=== PATIENT | female | born 1990 | race Caucasian/White ===

== ENCOUNTER 2020-11-01 07:00 | Inpatient (IN) | payer BC, OTHER ==
[2020-11-01] MEDS ORDERED: BUTORPHANOL TARTRATE 1 MG/ML VIAL IVPB ONE (07:45)
[2020-11-01] MEDS ORDERED: PROMETHAZINE HCL 25 MG/1 ML VIAL IVPB ONE (07:45)
[2020-11-01 08:51] VITALS: BMI 40.3
[2020-11-01 08:54] LABS: INR 0.96 (0.83-1.09); PROTHROMBIN TIME (PATIENT) 11.6 SEC (9.7-13.0)
[2020-11-01 08:55] LABS: BASO % 0.5 % (0-2.0); EOS % 0.5 % (0-4.5); HEMATOCRIT 29.6 % (32.4-45.2); HEMOGLOBIN 9.9 GM/dL (10.7-15.3); LYMPH % 16.4 % (8-40); MCH 26.1 pg (25.7-33.7); MCHC 33.5 g/dl (32.0-36.0); MEAN CELL VOLUME 77.9 fl (80-96); MEAN PLT VOLUME 10.2 fl (7.5-11.1); MONO % 7.5 % (3.8-10.2); NEUT % 75.1 % (42.8-82.8); PLATELET COUNT 252 K/MM3 (134-434); RDW 15.7 % (11.6-15.6); WHITE BLOOD COUNT 8.5 K/mm3 (4.0-10.0)
[2020-11-01 08:56] LABS: ACTIVATED PTT 25.2 SECONDS (25.2-36.5)
[2020-11-01] MEDS: DEXTROSE 5%-LACTATED RINGERS 1,000 ML IV SCH (09:00)
[2020-11-01 09:05] LABS: CALCIUM 8.7 mg/dL (8.5-10.1)
[2020-11-01 09:06] LABS: BLOOD UREA NITROGEN 10.1 mg/dL (7-18)
[2020-11-01 09:09] LABS: CREATININE 0.6 mg/dL (0.55-1.3)
[2020-11-01] MEDS: OXYTOCIN 30 UNITS in 0.9% NS 30 UNIT/500 ML INFUS.BAG IVPB SCH (09:10)
[2020-11-01] MEDS ORDERED: BUPIVACAINE HCL/PF 0.25% (2.5MG/ML) 10 ML VIAL ONE ×2 (13:43→21:08)
[2020-11-01] MEDS ORDERED: FENTANYL/BUPIVACAINE/NS/PF - PCEA - 50 ML DISP.SYRIN EP ONE ×3 (13:54→21:12)
[2020-11-01] MEDS: FENTANYL/BUPIVACAINE/NS/PF - PCEA - 50 ML DISP.SYRIN EP SCH (14:15)
[2020-11-01] MEDS ORDERED: NALOXONE HCL 0.4 MG/ML VIAL IVPUSH PRN (14:22)
[2020-11-01] MEDS ORDERED: PCA PUMP NR ONE (21:12)
[2020-11-01] MEDS ORDERED: LIDOCAINE HCL 1% PRESERVATIVE FREE - 30ML VIAL ONE (21:56)
[2020-11-01] MEDS ORDERED: OXYTOCIN 20 UNITS in 0.9% NS 20 UNIT/1,000 ML INFUS.BAG IV ONE (21:56)
[2020-11-01] MEDS ORDERED: METHYLERGONOVINE MALEATE 0.2 MG/1 ML AMP IM PRN (23:28)
[2020-11-01] MEDS ORDERED: WITCH HAZEL 50% (TUCKS) 40 PAD/JAR PAD TP PRN (23:28)
[2020-11-01] MEDS ORDERED: oxyCODONE HCL 5 MG TABLET PO PRN (23:28)
[2020-11-01] MEDS ORDERED: BENZOCAINE 28 GM HEMORRHOIDAL OINTMENT TP PRN (23:28)
[2020-11-01] MEDS ORDERED: BISACODYL 10 MG SUPP.RECT RC PRN (23:28)
[2020-11-01] MEDS ORDERED: BENZOCAINE 20% 57 GM BOTTLE TP PRN (23:28)
[2020-11-02] MEDS ORDERED: IBUPROFEN 600 MG TABLET (FP) PO ONE (00:21)
[2020-11-02] MEDS ORDERED: PCA PUMP NR ONE (00:22)
[2020-11-02] MEDS ORDERED: ACETAMINOPHEN 325 MG TABLET (FP) ONE (00:22)
[2020-11-02] MEDS: IBUPROFEN 600 MG TABLET (FP) PO PRN ×4 (00:25→23:55)
[2020-11-02] MEDS: ACETAMINOPHEN 325 MG TABLET (FP) PO PRN ×4 (00:25→23:55)
[2020-11-02] MEDS: OXYTOCIN 20 UNITS in 0.9% NS 20 UNIT/1,000 ML INFUS.BAG IV SCH ×2 (02:55→23:56)
[2020-11-02 08:26] LABS: BASO % 0.3 % (0-2.0); EOS % 0.1 % (0-4.5); HEMOGLOBIN 9.2 GM/dL (10.7-15.3); MCH 26.2 pg (25.7-33.7); MCHC 32.9 g/dl (32.0-36.0); MEAN CELL VOLUME 79.8 fl (80-96); MEAN PLT VOLUME 10.3 fl (7.5-11.1); NEUT % 83.6 % (42.8-82.8); PLATELET COUNT 213 K/MM3 (134-434); RBC 3.51 M/mm3 (3.60-5.2); RDW 15.9 % (11.6-15.6); WHITE BLOOD COUNT 14.3 K/mm3 (4.0-10.0)
[2020-11-02] MEDS: PRENATAL VITAMINS W/ FOLIC ACID TABLET (FP) PO SCH (09:16)
[2020-11-02] MEDS ORDERED: DIPHTH,PERTUSS(ACELL),TET 0.5 ML DISP.SYRIN IM ONE (20:38)
[2020-11-02] MEDS: DEXTROSE 5%-LACTATED RINGERS 1,000 ML IV SCH (21:38)
[2020-11-02] MEDS: OXYTOCIN 30 UNITS in 0.9% NS 30 UNIT/500 ML INFUS.BAG IVPB SCH (21:38)
[2020-11-02] MEDS: FENTANYL/BUPIVACAINE/NS/PF - PCEA - 50 ML DISP.SYRIN EP SCH (21:38)
[2020-11-02] MEDS ORDERED: SENNOSIDES/DOCUSATE COMBO (SENNA PLUS) TABLET (UD) PO PRN (22:00)
[2020-11-03] MEDS: PRENATAL VITAMINS W/ FOLIC ACID TABLET (FP) PO SCH (09:43)
[2020-11-03] MEDS: ACETAMINOPHEN 325 MG TABLET (FP) PO PRN (11:26)
[2020-11-03] MEDS: IBUPROFEN 600 MG TABLET (FP) PO PRN (11:27)
[2020-11-03 11:53] VITALS: BP 108/70; PULSE 90; TEMP 98
== END 2020-11-03 14:30 | disposition home or self-care (01) | DRG 807 ==
LOC: JLDR 07:00 → J3W 11-02 01:36
PROVIDERS: ADMIT Obstetrics & Gynecology; ATTEND Obstetrics & Gynecology
PROC: 10E0XZZ Delivery of Products of Conception, External Approach (ICD-10-PCS; principal; 2020-11-01)
PROC: 3E033VJ Introduction of Other Hormone into Peripheral Vein, Percutaneous Approach (ICD-10-PCS; 2020-11-01)
PROC: 0W8NXZZ Division of Female Perineum, External Approach (ICD-10-PCS; 2020-11-01)
DX: O41.03X0 Oligohydramnios, third trimester, not applicable or unspecified (principal); Z37.0 Single live birth; Z3A.39 39 weeks gestation of pregnancy
CPT/HCPCS: 36415; 59409; 80048; 85025; 85610; 85730; 86780; 86850; 86900; 86901; 90715

== ENCOUNTER 2023-08-10 10:01 | Inpatient (IN) | payer BC, OTHER ==
[2023-08-10] MEDS: ELECTROLYTE-148 SOLN 1,000 ML IV SCH (20:15)
[2023-08-10 21:32] LABS: BASO % 0.2 % (0-2.0); EOS % 0.2 % (0-4.5); HEMATOCRIT 28.8 % (32.4-45.2); HEMOGLOBIN 9.6 GM/dL (10.7-15.3); LYMPH % 15.2 % (8-40); MCH 26.2 pg (25.7-33.7); MCHC 33.3 g/dl (32.0-36.0); MEAN CELL VOLUME 78.7 fl (80-96); MEAN PLT VOLUME 9.5 fl (7.5-11.1); MONO % 6.6 % (3.8-10.2); NEUT % 77.8 % (42.8-82.8); PLATELET COUNT 246 10^3/uL (134-434); RBC 3.66 M/mm3 (3.60-5.2); RDW 15.6 % (11.6-15.6)
[2023-08-10 21:39] LABS: INR 0.97 (0.83-1.09); POTASSIUM 3.8 mmol/L (3.5-5.1); PROTHROMBIN TIME (PATIENT) 11.3 SEC (9.7-13.0)
[2023-08-10 21:40] LABS: BLOOD UREA NITROGEN 9.3 mg/dL (7-18); CALCIUM 8.6 mg/dL (8.5-10.1)
[2023-08-10 21:41] LABS: ACTIVATED PTT 26.7 SECONDS (25.2-36.5)
[2023-08-10 21:44] LABS: CREATININE 0.5 mg/dL (0.55-1.3)
[2023-08-10 21:56] VITALS: BMI 42.5
[2023-08-10] MEDS ORDERED: FENTANYL/BUPIVACAINE/NS/PF - PCEA - 50 ML DISP.SYRIN EP ONE (22:15)
[2023-08-10] MEDS ORDERED: NALOXONE HCL 0.4 MG/ML VIAL IVPUSH PRN (22:23)
[2023-08-10] MEDS ORDERED: LIDO 2%/EPI 1:200000 PRESRVFRE (20 ML SDVIAL) ONE (22:24)
[2023-08-10] MEDS ORDERED: BUPIVACAINE HCL/PF 0.25% (2.5MG/ML) 10 ML VIAL ONE (22:24)
[2023-08-10] MEDS: FENTANYL/BUPIVACAINE/NS/PF - PCEA - 50 ML DISP.SYRIN EP SCH (22:40)
[2023-08-10] MEDS ORDERED: OXYTOCIN 30 UNITS in 0.9% NS 30 UNIT/500 ML INFUS.BAG IVPB ONE (23:01)
[2023-08-10 23:02] LABS: HIV INTERPRETATION NEGATIVE (NEGATIVE)
[2023-08-10] MEDS: OXYTOCIN 30 UNITS in 0.9% NS 30 UNIT/500 ML INFUS.BAG IVPB SCH (23:30)
[2023-08-11] MEDS ORDERED: OXYTOCIN 20 UNITS in 0.9% NS 20 UNIT/1,000 ML INFUS.BAG IV ONE (00:32)
[2023-08-11] MEDS: OXYTOCIN 20 UNITS in 0.9% NS 20 UNIT/1,000 ML INFUS.BAG IV SCH (00:42)
[2023-08-11] MEDS ORDERED: WITCH HAZEL 50% (TUCKS) 40 PAD/JAR PAD TP PRN (00:57)
[2023-08-11] MEDS ORDERED: oxyCODONE HCL 5 MG TABLET PO PRN (00:57)
[2023-08-11] MEDS ORDERED: BENZOCAINE 20% 57 GM BOTTLE TP PRN (00:57)
[2023-08-11] MEDS ORDERED: BISACODYL 10 MG SUPP.RECT RC PRN (00:57)
[2023-08-11] MEDS ORDERED: BENZOCAINE 28 GM HEMORRHOIDAL OINTMENT TP PRN (00:57)
[2023-08-11] MEDS ORDERED: METHYLERGONOVINE MALEATE 0.2 MG/1 ML AMP IM PRN (00:57)
[2023-08-11] MEDS: IBUPROFEN 600 MG TABLET (FP) PO PRN (03:40)
[2023-08-11 08:02] LABS: BASO % 0.2 % (0-2.0); EOS % 0.2 % (0-4.5); HEMATOCRIT 28.4 % (32.4-45.2); HEMOGLOBIN 9.4 GM/dL (10.7-15.3); LYMPH % 12.2 % (8-40); MCH 26.4 pg (25.7-33.7); MEAN CELL VOLUME 80.1 fl (80-96); MEAN PLT VOLUME 9.5 fl (7.5-11.1); MONO % 7.7 % (3.8-10.2); NEUT % 79.7 % (42.8-82.8); PLATELET COUNT 196 10^3/uL (134-434); RBC 3.55 M/mm3 (3.60-5.2); RDW 15.4 % (11.6-15.6); WHITE BLOOD COUNT 11.2 K/mm3 (4.0-10.0)
[2023-08-11] MEDS: PRENATAL VITAMINS W/ FOLIC ACID TABLET (FP) PO SCH (09:32)
[2023-08-11] MEDS: FERROUS SO4 325 MG TABLET (FP) PO SCH (09:32)
[2023-08-11] MEDS: DIPHTH,PERTUSS(ACELL),TET 0.5 ML DISP.SYRIN IM ONE (09:33)
[2023-08-12 08:24] VITALS: RESP 18
[2023-08-12] MEDS: ACETAMINOPHEN 325 MG TABLET (FP) PO PRN (21:36)
[2023-08-12] MEDS ORDERED: SENNOSIDES/DOCUSATE COMBO (SENNA PLUS) TABLET (UD) PO PRN (22:00)
[2023-08-13 11:27] VITALS: BP 122/53; PULSE 64; TEMP 98.2
== END 2023-08-13 12:00 | disposition home or self-care (01) | DRG 807 ==
LOC: JDEL 10:01 → JLDR 20:09 → J3W 08-11 03:23
PROVIDERS: ADMIT Obstetrics & Gynecology; ATTEND Obstetrics & Gynecology
PROC: 10E0XZZ Delivery of Products of Conception, External Approach (ICD-10-PCS; principal; 2023-08-11)
DX: O99.214 Obesity complicating childbirth (principal); Z37.0 Single live birth; Z3A.39 39 weeks gestation of pregnancy
CPT/HCPCS: 36415; 80048; 85025; 85610; 85730; 86780; 86803; 86850; 86900; 86901; 87389; 90715